=== PATIENT | female | born 1985 | race Caucasian/White ===

== ENCOUNTER 2020-05-29 18:56 | Emergency (ER) | payer BC ==
[2020-05-29] MEDS ORDERED: IBUPROFEN 600 MG TABLET PO ONE (20:07)
[2020-05-29] MEDS ORDERED: METOPROLOL TARTRATE 25 MG TABLET PO ONE (20:11)
--- NOTE | 2020-05-29 20:18 | ER Document Report ---
ED General - General Chief Complaint: Flu Symptoms Stated Complaint: HEADACHE,FEVER,BODY ACHES Time Seen by Provider: 05/29/20 19:34 Mode of Arrival: Ambulatory Information source: Patient Notes: 34-year-old female coming in today concerned about possible Covid infection. 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 2 days ago she woke up with a fever and a bad headache and threw up several times. The day later she was feeling a little bit better but then woke up today and was having total body aches, fever, chills, nausea and headache. She is concerned because she has a who is a transplant patient. Her work told her to come and get checked for Covid. She has a history of tachycardia. Has not taken her Lopressor yet today. Past Medical History - Social History Smoking Status: Current Every Day Smoker Chew tobacco use (# tins/day): No Frequency of alcohol use: None Drug Abuse: None Family History: None Patient has homicidal ideation: No Past Surgical History: Reports: Hx Section Review of Systems - Review of Systems Notes: Constitutional: Positive for fevers, chills, malaise, myalgias EENT: No eye redness. No eye pain. No ear pain. No sore throat. Cardiovascular: No chest pain. No palpitations. Respiratory: Positive for cough and mild shortness of breath. No respiratory distress. Gastrointestinal: No abdominal pain. No nausea, vomiting, or diarrhea. Genitourinary: Atraumatic. No lesions. No pain. No discharge. Musculoskeletal: Atraumatic. No swelling. No deformities. Skin: No rash or lesions. Lymphatic: No swollen lymph nodes. Neurologic: No headache. No syncope. Psychiatric: No suicidal or homicidal ideation. Physical Exam - Vital signs Vitals: Temp 102.2 F H 05/29/20 18:57 - Notes Notes: General: Well-developed, well-nourished. In no acute distress. Non-toxic appearing. Cardiac: Well-perfused. Tachycardic. no murmurs, rubs, or gallops. Pulmonary: No respiratory distress. No cyanosis. Bilateral lung riley are clear to auscultation. Abdominal: Non-distended. Non-rigid. Bowels sounds are present in all four quadrants. No guarding or rebound. HEENT: Head is atraumatic. Conjunctivae not reddened. No tearing. PERRL. EOMI. Orbits atraumatic. No periorbital swelling or erythema. Oropharynx is without erythema, swelling, or exudates. Neck: Supple. No adenopathy. No meningismus. Dermatologic: Warm with good turgor. No rash. Atraumatic. Chest: Atraumatic. No chest wall tenderness to palpation. Musculoskeletal: Moves all extremities well. No range of motion deficits. no muscular or joint tenderness. No paraspinal muscle tenderness. no midline spinal tenderness or step-off. Genitourinary: Examination deferred Neurologic: No gross neurologic deficits. Psychiatric: Normal mood. Course - Re-evaluation Re-evalutation: 05/29/20 20:18 Covid and influenza ordered. Motrin for a 102 degree fever. Metoprolol 25 mg as this is her regular dose for her tachycardia. Does not want an IV or lab work necessarily. Will encourage her to push p.o. fluids while here. 05/29/20 21:16 Influenza swab is negative. Patient is strongly suspect for COVID-19. We will send her home accordingly 05/29/20 21:23 Heart rate is now down to 103 bpm. - Vital Signs Vital signs: Temp Pulse Resp BP Pulse Ox 102.2 F H 147 H 24 H 148/94 H 99 05/29/20 19:10 05/29/20 19:10 05/29/20 19:10 05/29/20 19:10 05/29/20 19:10 - Diagnostic Test Radiology reviewed: Reports reviewed Discharge - Discharge Clinical Impression: Viral syndrome Condition: Good Disposition: HOME, SELF-CARE Instructions: COVID-19 Guidance for Persons Under Investigation, Viral Syndrome ([facility]) Forms: Return to Work
[2020-05-29 21:12] LABS: A TYPE INFLUENZA AG NEGATIVE (NEGATIVE); B INFLUENZA AG NEGATIVE (NEGATIVE)
[2020-05-29] MEDS ORDERED: ONDANSETRON ODT 4 MG TAB (6 TAB/ER DISP) PO PRN (21:23)
[2020-05-29 21:30] VITALS: BP 135/71
== END 2020-05-29 21:31 | disposition home or self-care (01) ==
LOC: ER 18:56
DX: B34.9 Viral infection, unspecified (principal); R51.9 Headache, unspecified; R50.9 Fever, unspecified; M79.10 Myalgia, unspecified site; R11.0 Nausea; R05 Cough; R06.02 Shortness of breath; Z20.828 Contact with and (suspected) exposure to other viral communicable diseases; R00.0 Tachycardia, unspecified; Z79.899 Other long term (current) drug therapy; F17.200 Nicotine dependence, unspecified, uncomplicated
CPT/HCPCS: 99283; 87804; U0003; C9803; 87635